=== PATIENT | female | born 1980 | race American Indian/Alaskan Native ===

== ENCOUNTER 2021-06-27 09:37 | Emergency (ER) | payer OTHER ==
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
[2021-06-27] MEDS: fentaNYL 100 MCG/2 ML INJ IM ONE (13:01)
[2021-06-27] MEDS: ONDANSETRON 4 MG/2 ML INJ IM ONE (13:01)
[2021-06-27 14:01] VITALS: BP 169/91
== END 2021-06-27 14:03 | disposition home or self-care (01) ==
LOC: ED 09:37
DX: S16.1XXA Strain of muscle, fascia and tendon at neck level, initial encounter (principal); S09.90XA Unspecified injury of head, initial encounter; I10 Essential (primary) hypertension; V89.2XXA Person injured in unspecified motor-vehicle accident, traffic, initial encounter; Y93.89 Activity, other specified; Y92.89 Other specified places as the place of occurrence of the external cause; Y99.8 Other external cause status
CPT/HCPCS: 70450; 72125; 96372; 99284; J2405; J3010